=== PATIENT | male | born 1975 | race Caucasian/White ===

== ENCOUNTER → 2018-03-02 | Outpatient (CLI) | payer OTHER ==
[~2018-03-02] MED LIST: No meds per pt.
== END ==
LOC: STAR 07:48
PROVIDERS: ATTEND Surgery
DX: Z02.9 Encounter for administrative examinations, unspecified (principal)

== ENCOUNTER 2018-03-06 08:49 | Day surgery (SDC) | payer OTHER ==
[~2018-03-06] VITALS: Ht 177.8 cm; Wt 255.3 kg
[2018-03-06 09:44] VITALS: BP 161/85
[2018-03-06] MEDS ORDERED: LACTATED RINGERS 1,000 ML IV SCH (09:46)
[2018-03-06] MEDS ORDERED: BUPIVACAINE/PF-EPI 0.5% 1:200K ONE (10:09)
[2018-03-06] MEDS ORDERED: PROPOFOL 50 ML ONE (11:13)
[2018-03-06] MEDS ORDERED: SUCCINYLCHOLINE 20 MG/ML, 10ML ONE (11:15)
[2018-03-06] MEDS ORDERED: FENTANYL PF 250 MCG/5ML ONE (11:18)
[2018-03-06] MEDS ORDERED: CEFAZOLIN 1,000 MG ONE ×3 (12:02)
[2018-03-06] MEDS ORDERED: DEXAMETHASONE 4 MG/ML, 1ML ONE (12:02)
[2018-03-06] MEDS ORDERED: ONDANSETRON 2MG/ML, 2ML ONE ×2 (12:02)
[2018-03-06] MEDS ORDERED: ONDANSETRON ODT 8 MG PO PRN (13:00)
[2018-03-06] MEDS ORDERED: OXYcodone 5 MG/5 ML ORAL.SOL UDC PO PRN (13:00)
[2018-03-06] MEDS ORDERED: MORPHINE SULFATE 4 MG/ML, 1ML IVPush PRN (13:00)
[2018-03-06] MEDS ORDERED: DEXAMETHASONE 4 MG/ML, 1ML IV PRN (13:00)
[2018-03-06] MEDS ORDERED: MEPERIDINE/PF 25MG/0.5ML IVPush PRN (13:00)
[2018-03-06] MEDS ORDERED: EPHEDRINE 50 MG/ML, 1ML IM PRN (13:00)
[2018-03-06] MEDS ORDERED: MIDAZOLAM 1 MG/ML, 2ML IV PRN (13:00)
[2018-03-06] MEDS ORDERED: ACETAMINOPHEN 325 MG TABLET PO PRN (13:00)
[2018-03-06] MEDS ORDERED: PROCHLORPERAZINE 5 MG/ML, 2ML IV PRN (13:00)
[2018-03-06] MEDS ORDERED: DIPHENHYDRAMINE 50 MG/ML, 1ML IVPush PRN (13:00)
[2018-03-06] MEDS ORDERED: FENTANYL PF 100 MCG/2ML IV PRN (13:00)
[2018-03-06] MEDS ORDERED: PROPOFOL 10 MG/ML, 20ML ONE (13:18)
[2018-03-06] MEDS ORDERED: FENTANYL PF 100 MCG/2ML ONE (13:34)
[2018-03-06] MEDS ORDERED: ACETAMINOPHEN 650 MG/20.3 ML UDC ONE (13:51)
[2018-03-06] MEDS ORDERED: OXYcodone 5 MG/5 ML ORAL.SOL UDC ONE (13:52)
== END 2018-03-06 16:15 | disposition home or self-care (01) ==
LOC: OUT 08:49
PROVIDERS: ATTEND Surgery
DX: D17.24 Benign lipomatous neoplasm of skin and subcutaneous tissue of left leg (principal); D17.23 Benign lipomatous neoplasm of skin and subcutaneous tissue of right leg; E66.01 Morbid (severe) obesity due to excess calories; Z68.45 Body mass index [BMI] 70 or greater, adult
CPT/HCPCS: 27339; 88305; J0330; J0690; J1100; J2405; J2704; J3010; J7120